=== PATIENT | female | born 1960 | race Caucasian/White ===

== ENCOUNTER → 2023-04-06 | Outpatient (CLI) | payer OTHER | END | disposition home or self-care (01) | LOC: CARD 07:51 | PROVIDERS: ATTEND Physician Assistant | DX: R00.2 Palpitations (principal); E78.5 Hyperlipidemia, unspecified; R06.00 Dyspnea, unspecified; Z82.49 Family history of ischemic heart disease and other diseases of the circulatory system | CPT/HCPCS: 93246 ==

== ENCOUNTER → 2023-04-27 | Outpatient (CLI) | payer OTHER | LOC: CARD 09:21 | PROVIDERS: ATTEND Physician Assistant | DX: R00.2 Palpitations (principal); E78.5 Hyperlipidemia, unspecified; R06.00 Dyspnea, unspecified; Z82.49 Family history of ischemic heart disease and other diseases of the circulatory system; I35.1 Nonrheumatic aortic (valve) insufficiency | CPT/HCPCS: 93306 ==